=== PATIENT | female | born 1970 | race Caucasian/White ===

== ENCOUNTER 2016-08-17 09:07 | Emergency (ER) | payer BC ==
[2016-08-17 09:54] LABS: Mean Cell Volume 91.7 fl (78-100); Mean Corpuscular Hemoglobin 31.3 pg (27-31); Mean Corpuscular Hgb Conc 34.1 g/dl (32-36); Mean Platelet Volume 9.6 fl (6.0-9.5); Neutrophil # 3.9 K/mm3 (1.3-6.0); Neutrophil % 62.1 % (42-75.0); Platelet Count 191 K/mm3 (150-450); Red Blood Count 4.47 M/mm3 (4.2-5.4); Red Cell Distribution Width 11.7 % (11.5-14.0); White Blood Count 6.2 K/mm3 (4.0-10.5)
[2016-08-17 10:10] LABS: Albumin * 4.1 gm/dl (3.4-5.0); Anion Gap 11.5 mmol/L (6.8-13.8); BUN/Creatinine Ratio 14.6 (9.0-21.6); Bilirubin, Total 0.7 mg/dL (0.0-1.1); Ca. Corrected For Albumin 8.9 mg/dL (8.4-10.2); Calcium * 9.3 mg/dL (7.9-10.9); Carbon Dioxide 28.3 mmol/L (24-32.6); Potassium 3.8 mmol/L (3.4-4.6); Total Protein 7.4 gm/dL (6.2-8.2)
--- NOTE | 2016-08-17 10:47 | ERNOTE ---
Dizziness ER Record Time Seen by Provider: 08/17/16 09:16 Immunizations: IMMUNIZATION HX Immunizations Up to Date Yes History of Influenza Vaccine Yes Hx Pneumococcal Vaccination Yes Allergies/Adverse Reactions: Allergies Allergy/AdvReac Type Severity Reaction Status Date / Time No Known Allergies Allergy Unverified 08/17/16 09:23 Home Medications: HOME MEDICATIONS Amlodipine Besylate/Benazepril [Lotrel 10-20 mg Capsule] 1 each PO DAILY [Last Taken Unknown] Aspirin 81 mg PO DAILY #30 tab.chew 08/17/16 [Last Taken Unknown] Bupropion HCl [Wellbutrin Sr] 150 mg PO DAILY 08/17/16 [Last Taken Unknown] Hydrochlorothiazide [Hydrodiuril] 25 mg PO DAILY 08/17/16 [Last Taken Unknown] LORazepam [Ativan] 0.5 mg PO DAILY 08/17/16 [Last Taken Unknown] - History of Present Illness Narrative: This patient presents to the emergency room for symptoms that she had 24 hours ago, which are now completely resolved. Yesterday while patient was doing her work on the computer she experienced a sense of dj vu. Following that sensation of dj vu patient felt fatigued and experienced a period of inability to speak. 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 Agents continuously resolved and she contact her primary care physician at that time her primary care physician suggested that she come to the emergency room immediately, and advised that the patient ignored completely. Patient presents to emergency room 24 hours after the symptoms. She does not have any symptoms right now except extreme fatigue. She states she's had several other symptoms similar to what happened 24 hours ago which spontaneously resolved. sHe denies having had any headaches blurry vision or sensation of syncope or near syncope. Review of Systems - Review of Systems Constitutional: Present: fatigue EYE: Present: no symptoms reported ENT: Present: no symptoms reported Respiratory: Present: no symptoms reported Cardiology: Present: no symptoms reported Gastrointestinal/Abdominal: Present: no symptoms reported Genitourinary: Present: no symptoms reported Musculoskeletal: Present: no symptoms reported Skin: Present: no symptoms reported Neurological: Present: other - patient complains of feeling tired and she complains that yesterday for an unknown period of time at best minutes she had a sensation that she could not speak - Patient's Past Medical History Patient History - Medical: Anxiety Patient History - Cardiac/Respiratory: Hypertension Patient History - Cancer: No Hx of Cancer Patient History - Surgical Procedures: Patient History - Other: None LMP (females 10-50): 1 month - Social History Living Situations: home Psych History: Hx of Anxiety Smoking Status: Current every day smoker Alcohol Use: none Drug Use: none - Immunizations Immunizations Up to Date: Yes Hx Pneumococcal Vaccination: Yes History of Influenza Vaccine: Yes Physical Exam - Physical Exam General Appearance: Present: wd/wn, alert, no apparent distress Eye Exam: Normal inspection: bilateral, PERRL: bilateral, EOMI: bilateral Ears, Nose, Throat: Present: normal ENT inspection, normal pharynx Neck: Present: normal inspection, nontender, supple, full range of motion Respiratory: Present: no respiratory distress, normal breath sounds, no accessory muscle use, chest nontender, lungs clear Cardiovascular/Chest: Present: regular rate, rhythm, no murmur, normal peripheral pulses Gastrointestinal/Abdominal: Present: normal bowel sounds Back Exam: Present: normal inspection Extremity Exam: Present: normal inspection, normal range of motion Neurological Exam: Present: alert, oriented, normal mood/affect, no motor/ sensory deficits, vat overhauler II-XII nml as tested, other - patient has absolutely no focal neurological deficits. She has normal feces she is able to keep any K properly without any slurred speech she has no focal neurological deficits whatsoever her gait is unaffected. Skin Exam: Present: normal color, warm/dry ED Progress - Results and Orders Patient's Lab Results:: I have reviewed the patient's lab results. - Vital Signs Patient's Vital Signs:: I have reviewed the patient's vital signs. Vital Signs: Vital Signs 08/17/16 08/17/16 08/17/16 09:14 10:15 10:35 Temperature 36.4 C L 36.6 C Pulse Rate 74 82 74 Respiratory 15 15 Rate Blood Pressure 131/82 118/85 117/86 O2 Sat by Pulse 100 100 99 Oximetry - CT/Ultrasound CT/Ultrasound Narrative: CT of the head was read as negative for any intracranial bleed by the radiologist. - Progress/Reassessment Chief Complaint: Dizziness Plan - Plan Plan: This patient's constellation of symptoms are quite worrisome. This patient states that she has had similar symptoms in the past that have spontaneously resolved. The patient does not have any focal neurological deficits at this time the presence of a sensation of dj vu followed with a fascia which spontaneously resolves point this examiner in the direction of perhaps seizure disorder versus TIA. Time in this facility access to her neurologist is not available. The neurologist at [facility] was counseled in regards to this matter. I spoke to Dr. Brantley in detail regarding this patient's condition at this time. She will need follow up he agreed to follow patient up in their clinic. Further had a good discussion with the patient and her spouse in regards to her condition and further workup that is necessary area and she has no emergency condition at this time I have given her instructions to call the neurology clinic at [facility], [place] at [phone] and make an appointment to follow-up with a neurologist in regards to her condition. Until that happens this examiner is not comfortable allowing the patient to drive around and go to work. This patient had good understanding of my instructions and plan. And her was agreeable to drive her to all necessary appointments. Departure Clinical Impression: Aphasia - Departure Disposition: Home self-care Condition: Good Instructions: Absence Epilepsy, Pediatric, Seizure, Adult, [id number] Additional Instructions: Please contact the neurology clinic at [facility] at her earliest convenience and make an appointment to follow-up with a neurologist there. His cost [place] care with Dr. Brantley at that facility. Call [phone] A and make an appointment to follow up there with a specialist. You are to be off work until cleared by neurology. The adding a baby aspirin daily medication regimen Referrals: Calrissa Bowen, PAINT SPECIALIST [Primary Care Provider] - Prescriptions: Aspirin 81 mg PO DAILY #30 tab.chew
[2016-08-17 11:24] VITALS: BP 118/87
== END 2016-08-17 11:22 | disposition home or self-care (01) ==
LOC: ER 09:07
DX: R47.01 Aphasia (principal); F17.200 Nicotine dependence, unspecified, uncomplicated; F41.9 Anxiety disorder, unspecified; I10 Essential (primary) hypertension